=== PATIENT | male | born 1980 | race African-American/Black ===

== ENCOUNTER 2021-02-18 10:24 | Emergency (ER) | payer MEDICAID ==
[~2021-02-18] VITALS: Ht 182.9 cm; Wt 89.8 kg
--- NOTE | 2021-02-18 10:32 | NUR ---
AT BEDSIDE FOR EVAL.
[2021-02-18 10:33] VITALS: BP 148/95
[2021-02-18] MEDS ORDERED: SULF1TAB48 PO (10:37)
--- NOTE | 2021-02-18 10:51 | NUR ---
KEISHA STAFFORD AT BEDSIDE FOR WOUND CLEANING AND DRESSING.
--- NOTE | 2021-02-18 11:03 | NUR ---
Patient discharged to home in stable condition. Written and verbal after care instructions given. Patient verbalizes understanding of instruction.
[2021-02-18] MEDS ORDERED: IBUPROFEN 400 MG TABLET ONE (11:07)
[2021-02-18] MEDS ORDERED: IBUPROFEN 400 MG TABLET PO ONE (11:30)
== END 2021-02-18 11:04 | disposition home or self-care (01) ==
LOC: ER 10:29
DX: S61.411A Laceration without foreign body of right hand, initial encounter (principal); Y04.0XXA Assault by unarmed brawl or fight, initial encounter; Y93.89 Activity, other specified; Y92.89 Other specified places as the place of occurrence of the external cause; Y99.8 Other external cause status
CPT/HCPCS: 99283; A6403

== ENCOUNTER 2021-02-20 08:54 | Emergency (ER) | payer MEDICAID ==
[~2021-02-20] VITALS: Ht 182.9 cm; Wt 89.8 kg
[~2021-02-20 08:54] MED LIST: SULF1TAB48 PO
[2021-02-20 09:06] VITALS: BP 152/96
--- NOTE | 2021-02-20 09:10 | NUR ---
TO ER CHAIR 2, C/O WOUND RECHECK ON RT ARM, SEEN 2DAYS AGO Addendum: 02/20/21 at 0914 by DANYEL TO ER BED 1
[2021-02-20] MEDS ORDERED: CEPH500C2 PO (09:17)
--- NOTE | 2021-02-20 09:17 | NUR ---
emt at bedside for wound cleanse and steri strip application
== END 2021-02-20 09:55 | disposition home or self-care (01) ==
LOC: ER 08:55
DX: S61.411A Laceration without foreign body of right hand, initial encounter (principal); Z79.899 Other long term (current) drug therapy; Y04.0XXA Assault by unarmed brawl or fight, initial encounter; Y93.89 Activity, other specified; Y92.89 Other specified places as the place of occurrence of the external cause; Y99.8 Other external cause status
CPT/HCPCS: 99283; A6403